=== PATIENT | female | born 1985 | race Caucasian/White ===

== ENCOUNTER 2016-09-13 19:52 | Inpatient (IN) | payer MEDICAID ==
[~2016-09-13] VITALS: Ht 167.6 cm; Wt 97.6 kg
[~2016-09-13 19:52] MED LIST: ADVAIR DIS14 PUFF/DI INH; BUSPIRONE HCL7.5 MG PO; PRISTIQ ER50 MG PO; SYNTHROID100 MCG PO; SYNTHROID88 MCG PO
[2016-09-14] MEDS ORDERED: PROCTOSOL-HC28.35 GM RECTAL (01:20)
[2016-09-14] MEDS ORDERED: SYNTHROID25 MCG PO (01:21)
[2016-09-14] MEDS ORDERED: SYNTHROID200 MCG PO (01:21)
[2016-09-14] MEDS ORDERED: PROAIR HFA8.5 GM INH (01:27)
[2016-09-16] MEDS ORDERED: MOTRIN800 MG PO (07:22)
[2016-09-16] MEDS ORDERED: COLACE100 MG PO (07:23)
[2016-09-16] MEDS ORDERED: NORCO 325-5 MG1 TAB PO (07:29)
[2016-09-16] MEDS ORDERED: FEOSOL325 MG PO (07:35)
[2016-09-16] MEDS ORDERED: FLONASE16 GM NASBOTH (09:44)
[2016-09-16] MEDS ORDERED: CLARITIN10 MG PO (09:44)
[2016-09-16] MEDS ORDERED: LAN-O-SOOTHE7 GM TOP (09:44)
== END 2016-09-16 10:39 | disposition short-term general hospital (02) | DRG 775 ==
LOC: LDRIP 19:52
PROVIDERS: ADMIT Family Medicine
PROC: 10E0XZZ Delivery of Products of Conception, External Approach (ICD-10-PCS; principal; 2016-09-14)
PROC: 3E0P7GC Introduction of Other Therapeutic Substance into Female Reproductive, Via Natural or Artificial Opening (ICD-10-PCS; principal; 2016-09-14)
DX: O62.3 Precipitate labor (principal); Z3A.40 40 weeks gestation of pregnancy; Z37.0 Single live birth
CPT/HCPCS: A9150; J2300; J2310; J2370; J2590; J2795; J3010